=== PATIENT | female | born 1960 | race Caucasian/White ===

== ENCOUNTER 2025-05-08 07:34 | Emergency (ER) | payer MEDICARE, SELFPAY ==
[2025-05-08 07:38] VITALS: BP 161/78; PULSE 72; RESP 12; TEMP 36.2; O2SAT 98
--- NOTE | 2025-05-08 07:40 | W.ED.GENAD ---
Discharge Plan Disposition Patient Disposition: Home Condition: Stable Discharge Details Clinical Impression: Ear pain, left ED Provider: Keisha Gray Discharge Instructions Instructions: Outer Ear Infection ED, Ear Pain ED Additional Instructions: Use Cipro Dex drops - 4 drops in ear twice for 7 days. Discharge Data Discharge Physician: Keisha Gray [facility] General Date/Time Provider Initiated Documentation: 05/08/25 07:40. HPI Narrative: 64-year-old female presents for evaluation of left ear irritation. Patient states that last week she felt that maybe a bug flew into her ear. She has been having some irritation since that time. She has had some increased pain over the last day or 2. No fevers or chills. No throat pain. No difficulty swallowing. She has had to have her ears flushed for foreign bodies in the past and this feels similar. Related Data Allergies Allergy/AdvReac Type Severity Reaction Status Date / Time hyoscyamine AdvReac Unknown Unknown Verified 05/08/25 07:43 Penicillins AdvReac Hives Verified 05/08/25 07:43 General Stated Complaint: EarProblem HERON: 4 Review of Systems Narrative: Remainder of review of systems otherwise negative except for as noted in the HPI x 5. Exam Narrative Exam Narrative: General: non-toxic, no respiratory distress, comfortable HEENT: normocephalic, atraumatic, lids and lashes normal, PERRL, EOMI, anicteric sclera, no conjunctival injection, left TM normal, right TM with discoloration to lower third which may be scarring, no erythema or bulging of TM, no significant cerumen, moist oral mucosa Musculoskeletal: full range of motion of arms and legs, no tenderness to palpation. no clubbing, cyanosis, or edema Neurologic: appropriate for age, strength normal Psych: alert and oriented Skin: no petechiae, no lesions, warm and dry Course Vital Signs Vital signs: Vital Signs Temperature 36.2 C L 05/08/25 07:38 Pulse 72 05/08/25 07:38 Respiratory Rate 12 05/08/25 07:38 Blood Pressure 161/78 H 05/08/25 07:38 Pulse Oximetry 98 05/08/25 07:38 Temperature 36.2 C L 05/08/25 07:38 Temperature Source Tympanic 05/08/25 07:38 Pulse 72 05/08/25 07:38 Respiratory Rate 12 05/08/25 07:38 Blood Pressure 161/78 H 05/08/25 07:38 Blood Pressure Position Sitting 05/08/25 07:38 Pulse Oximetry 98 05/08/25 07:38 Oxygen Delivery Method Room Air 05/08/25 07:38 Oxygen Flow Rate 0 05/08/25 07:38 Medical Decision Making 64-year-old female presents for evaluation of left ear irritation. On examination there is no sign of cerumen impaction or infection. Will flush ears. Ear was flushed without any significant debris. On reevaluation patient states that the pain is actually in her lower ear. There is some erythema to the canal itself. Will treat for outer ear infection with Cipro HC. She will follow-up with primary care if symptoms persist. PFSH All Active Problems (Updated 05/08/25 @ 08:07 by Keisha Gray MD) Ear pain, left (Acute) Social History Smoking risk assessment performed?: No Do you feel safe at home: Yes Do you feel safe in your relationship?: Yes
[2025-05-08] MEDS: Ciprofloxacin/Dexameth. 7.5 ML BTL (08:12)
== END 2025-05-08 08:14 | disposition home or self-care (01) ==
LOC: ER 08:22
PROVIDERS: Emergency Provider Emergency Medicine Emergency Medical Services
DX: H92.02 Otalgia, left ear (principal)
CPT/HCPCS: 99283 ×2